=== PATIENT | male | born 2000 | race American Indian/Alaskan Native ===

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

== ENCOUNTER 2021-04-20 18:46 | Emergency (ER) | payer OTHER, SELFPAY ==
[2021-04-20] MEDS ORDERED: ASPIRIN 325 MG TAB PO ONE (23:02)
--- NOTE | 2021-04-20 23:31 | XRay Report ---
XR chest routine 2V INDICATION / CLINICAL INFORMATION: palpitations. COMPARISON: None available. FINDINGS: SUPPORT DEVICES: None. HEART /PULMONARY VASCULATURE: No significant abnormality. LUNGS / PLEURA: No significant pulmonary or pleural abnormality. No pneumothorax. ADDITIONAL FINDINGS: No significant additional findings. IMPRESSION: 1. No acute findings. Signer Name: Kemal Hampton MD Signed: 04/20/2021 11:27 PM Workstation Name: [id number]
[2021-04-20 23:46] LABS: Basophils % (Auto) 0.3 % (0.0-1.8); Eosinophils # (Auto) 0.1 K/mm3 (0.0-0.4); Eosinophils % (Auto) 0.6 % (0.0-4.3); Hematocrit 50.2 % (35.5-45.6); Hemoglobin 16.5 gm/dl (11.8-15.2); Lymphocytes # (Auto) 2.7 K/mm3 (1.2-5.4); Lymphocytes % (Auto) 31.6 % (13.4-35.0); Mean Corpuscular HGB Conc 33 % (32-34); Mean Corpuscular Volume 89 fl (84-94); Monocytes # (Auto) 0.5 K/mm3 (0.0-0.8); Monocytes % (Auto) 5.6 % (0.0-7.3); Platelet Count 198 K/mm3 (140-440); Red Blood Count 5.64 M/mm3 (3.65-5.03); Red Cell Distribution Width 12.8 % (13.2-15.2)
[2021-04-21 00:13] LABS: Alanine Aminotransferase 11 units/L (7-56); Albumin 4.9 g/dL (3.9-5); BUN/Creatinine Ratio 12; Blood Urea Nitrogen 12 mg/dL (9-20); Calcium 9.9 mg/dL (8.4-10.2); Hemolysis Index 13
--- NOTE | 2021-04-21 00:39 | Emergency Department Report ---
ED General Adult HPI - General Chief complaint: Arrhythmia/Palpitations Stated complaint: PALPATIONS Source: patient Mode of arrival: Ambulatory Limitations: No Limitations - History of Present Illness Initial comments: Patient is a 21-year-old -[place] male with a history of anxiety presents to the ED with complaint of acute onset persistent intermittent palpitations for the last 12 hours. Patient states that the symptoms have been persistent especially when he walks. Patient denies chest pain, shortness of breath, dizziness, syncope, nausea, vomiting, fever, chills, cough, sore throat, nasal and sinus congestion or change in vision. MD Complaint: Intermittent palpitations -: Sudden, hour(s) (12) Location: chest Radiation: non-radiation Severity scale (0 -10): 0 Quality: dull Consistency: intermittent Improves with: none Worsens with: none Associated Symptoms: denies other symptoms. denies: confusion, chest pain, cough, diaphoresis, fever/chills, headaches, loss of appetite, malaise, nausea/vomiting, rash, seizure, shortness of breath, syncope, other Treatments Prior to Arrival: none - Related Data Previous Rx's Medication Instructions Recorded Last Taken Type Ibuprofen [Motrin 800 MG tab] 800 mg PO Q8HR PRN #20 tablet 05/21/17 Unknown Rx Metaxalone [Skelaxin] 800 mg PO TID #20 tablet 05/21/17 Unknown Rx Sulfamethoxazole/Trimethoprim 1 each PO BID #14 tablet 05/21/17 Unknown Rx [Bactrim DS TAB] traMADoL [Ultram] 50 mg PO Q6HR PRN #10 tablet 05/21/17 Unknown Rx Allergies Allergy/AdvReac Type Severity Reaction Status Date / Time No Known Allergies Allergy Verified 08/18/13 20:23 ED Review of Systems ROS: Stated complaint: PALPATIONS Other details as noted in HPI Constitutional: denies: chills, fever Eyes: denies: eye pain, eye discharge, vision change ENT: denies: ear pain, throat pain Respiratory: denies: cough, shortness of breath, wheezing Cardiovascular: palpitations. denies: chest pain Endocrine: no symptoms reported Gastrointestinal: denies: abdominal pain, nausea, diarrhea Genitourinary: denies: urgency, dysuria Musculoskeletal: denies: back pain, joint swelling, arthralgia Skin: denies: rash, lesions Neurological: denies: headache, weakness, paresthesias Psychiatric: denies: anxiety, depression Hematological/Lymphatic: denies: easy bleeding, easy bruising ED Past Medical Hx - Past Medical History Previous Medical History?: No - Surgical History Past Surgical History?: No - Social History Smoking Status: Never Smoker Substance Use Type: None - Medications Home Medications: Home Medications Medication Instructions Recorded Confirmed Last Taken Type Ibuprofen [Motrin 800 MG tab] 800 mg PO Q8HR PRN #20 tablet 05/21/17 Unknown Rx Metaxalone [Skelaxin] 800 mg PO TID #20 tablet 05/21/17 Unknown Rx Sulfamethoxazole/Trimethoprim 1 each PO BID #14 tablet 05/21/17 Unknown Rx [Bactrim DS TAB] traMADoL [Ultram] 50 mg PO Q6HR PRN #10 tablet 05/21/17 Unknown Rx ED Physical Exam - General Limitations: No Limitations General appearance: alert, in no apparent distress - Head Head exam: Present: atraumatic, normocephalic, normal inspection - Eye Eye exam: Present: normal appearance, PERRL, EOMI Pupils: Present: normal accommodation - ENT ENT exam: Present: normal exam, normal orophraynx, mucous membranes moist, TM's normal bilaterally, normal external ear exam - Neck Neck exam: Present: normal inspection, full ROM - Respiratory Respiratory exam: Present: normal lung sounds bilaterally. Absent: respiratory distress, wheezes, rales, rhonchi, chest wall tenderness, accessory muscle use, decreased breath sounds, other - Cardiovascular Cardiovascular Exam: Present: regular rate, normal rhythm, normal heart sounds. Absent: systolic murmur, diastolic murmur, rubs, gallop - GI/Abdominal GI/Abdominal exam: Present: soft, normal bowel sounds. Absent: tenderness, guarding, rebound, hyperactive bowel sounds, hypoactive bowel sounds, organomegaly - Extremities Exam Extremities exam: Present: normal inspection, full ROM, normal capillary refill - Back Exam Back exam: Present: normal inspection, full ROM. Absent: tenderness, CVA tenderness (R), CVA tenderness (L), muscle spasm, paraspinal tenderness - Neurological Exam Neurological exam: Present: alert, oriented X3, CN II-XII intact, normal gait, reflexes normal - Psychiatric Psychiatric exam: Present: normal affect, normal mood - Skin Skin exam: Present: warm, dry, intact, normal color. Absent: rash ED Course Vital Signs 04/20/21 04/21/21 19:42 01:24 Temperature 98.4 F Pulse Rate 76 76 Respiratory 18 12 Rate Blood Pressure 99/73 Blood Pressure 104/70 [Right] O2 Sat by Pulse 98 98 Oximetry ED Medical Decision Making - Lab Data Result diagrams: 04/20/21 23:29 04/20/21 23:29 - Radiology Data Radiology results: report reviewed, image reviewed [facility] [address] [place] [address] XRay Report Signed Patient: EVARISTO HOGUE MR#: [id number] : 2000 Acct:[id number] Age/Sex: 21 / M ADM Date: 04/20/21 Loc: ED Attending Dr: Ordering Physician: JAMES NOLAN Date of Service: 04/20/21 Procedure(s): XR chest routine 2V Accession Number(s): [id number] cc: JAMES NOLAN Fluoro Time In Minutes: XR chest routine 2V INDICATION / CLINICAL INFORMATION: palpitations. COMPARISON: None available. FINDINGS: SUPPORT DEVICES: None. HEART /PULMONARY VASCULATURE: No significant abnormality. LUNGS / PLEURA: No significant pulmonary or pleural abnormality. No pneumothorax. ADDITIONAL FINDINGS: No significant additional findings. IMPRESSION: 1. No acute findings. Signer Name: Joseph Hampton MD Signed: 04/20/2021 11:27 PM Workstation Name: [id number] Transcribed By: JS Dictated By: JOSEPH HAMPTON MD Electronically Authenticated By: JOSEPH HAMPTON MD Signed Date/Time: 04/20/212326 DD/ 26 TD/TT: - Medical Decision Making This is a 21-year-old -[place] male with a history of anxiety presents to the ED with complaint of acute onset persistent intermittent palpitations for the last 12 hours. Patient states that the symptoms have been persistent especially when he walks. In the ED, patient is alert and oriented x3 and is not in any distress. Patient is hemodynamically stable. Chest x-ray showed no acute cardiopulmonary abnormalities or pneumonitis. Lab test results were reviewed and are all nonactionable. Patient symptoms are likely due to anxiety since the patient has no cardiac risk factors. Patient was discharged home on medications advised to follow-up with his primary care physician in 3 to 5 days for reevaluation or return to the ED immediately if symptoms get worse. - Differential Diagnosis Anxiety; ACS; Pneumonia; Muscle strain; esophageal spasm Critical care attestation.: If time is entered above; I have spent that time in minutes in the direct care of this critically ill patient, excluding procedure time. ED Disposition Clinical Impression: Intermittent palpitations, Anxiety as acute reaction to exceptional stress Disposition: HOME / SELF CARE / HOMELESS Is pt being admited?: No Does the pt Need Aspirin: No Condition: Stable Instructions: Generalized Anxiety Disorder, Adult, Palpitations, [id number] Additional Instructions: All lab test results were reviewed and are all nonactionable. You have no risk factors for cardiac pathology at this time. Therefore follow-up with the freight broker Dr. Cleveland for further evaluation. Contact Dr. Miller office first thing in the morning on Friday, April 23, 2021 to schedule a follow-up appointment. Return to the ED immediately if symptoms get worse. Referrals: ADITYA DUNLAP MD [Staff Physician] - 3-5 Days Forms: Work/School Release Form(ED) Time of Disposition: 00:38 Print Language: SINHALA
[2021-04-21 01:25] VITALS: BP 104/70
--- NOTE | 2021-04-22 09:36 | Electrocardiograph Report ---
[facility] Test Date: 2021-04-20 Test Time: 19:57:56 Pat Name: EVARISTO HOGUE Department: Room: Gender: M Property Management Bookkeeper: FARHAN : 2000 Requested By: FABIANA CEE III Order Number: [id number] Reading MD: Wilfredo Gonzalez Measurements Intervals [place] Rate: 73 P: 76 [place]: 142 QRS: 267 QRSD: 96 T: 70 QT: 368 QTc: 407 Interpretive Statements Sinus rhythm LAD, CONSIDER LEFT ANTERIOR FASCICULAR BLOCK No previous ECG available for comparison Electronically Signed On 04-22-2021 9:36:17 EST by Wilfredo Gonzalez
== END 2021-04-21 01:23 | disposition home or self-care (01) ==
LOC: ED 18:46
DX: F41.1 Generalized anxiety disorder (principal); F43.0 Acute stress reaction; R00.2 Palpitations; Z79.899 Other long term (current) drug therapy
CPT/HCPCS: 36415; 71046; 80053; 84443; 84484; 85025; 93005; 99284